=== PATIENT | female | born 1985 | race Caucasian/White ===

== ENCOUNTER 2017-06-26 12:03 | Emergency (ER) | payer MEDICAID ==
[2017-06-26 12:16] VITALS: RESP 16
--- NOTE | 2017-06-26 12:17 | EDPHY ---
HPI/HX/ROS/PE/MDM Narrative: CHIEF COMPLAINT: Abdominal pain, syncope HPI: This patient is a 32 year old female complaining of abdominal pain who presents following a syncopal episode this morning. She has had "strange stomach issues " for the past two weeks including bloating, fatigue, nausea, and increased appetite. These symptoms do not seem to be relieved by anything, and are constant. She denies diarrhea but has had loose stools and increased frequency of bowel movements. Increased urinary frequency as well. She has woken up each night feeling ill and notes increased bowel noises. Additionally, she has had a pruritic rash on her sides. Today, she went to a kickTelllering class and became lightheaded about 3 minutes into the class and then fainted two minutes later. She is generally very athletic and this is unusual for her. The patient was diagnosed with eosinophilic esophagitis by scope one year ago in May. She has had an abdominal ultrasound in the past but no CT studies. She initially followed up with an cafe site attendant, but has not pursued much further treatment. She thought symptoms may be related to her EoE and tried a liquid diet for three days without much relief. She denies history of abdominal surgeries. No dysuria. Her last menstrual period was 06/06/17, and was normal for her. No fever, chest pain, shortness of breath, or other associated sypmtoms. REVIEW OF SYSTEMS: Aside from elements discussed in the HPI, a comprehensive 10-point review of systems was reviewed and is negative. PMH: Eosinophilic esophagitis. Anemia. SOCIAL HISTORY: Works in event sales and marketing. PHYSICAL EXAM: General:Patient is alert, in no acute distress. ENT:Eyes are normal to inspection. ENT inspection normal. Neck: Normal inspection. Full range of motion. Respiratory:No respiratory distress. Breath sounds normal bilaterally. Cardiovascular: Regular rate and rhythm. Strong peripheral pulses. Normal cap refill. Abdomen: Mild epigastric tenderness. There are no peritoneal signs. There are normal bowel sounds. Back: Normal to inspection. No tenderness to palpation. Skin: Normal color. No rash. Warm and dry. Extremities: Normal appearance. Full range of motion. Neuro: Oriented x3. Normal motor function. Normal sensory function. (Kunal Issa) ED Course: 32 y/o female presents with two week history of abdominal discomfort. IV established. Mild epigastric tenderness on exam. Plan for EKG, labs including CBC, chemistries, UA, liver, lipase, BHCG. Plan to administer 1L IV NS. The 12 lead EKG was interpreted by myself. See hard copy and/or "tracemaster" electronic copy for interpretation. BHCG negative. Laboratory studies otherwise unremarkable. 13:30 Patient signed out to Dr. Martínez pending CTAP. I anticipate discharge home if study is negative. (Kunal Issa) 1330 care assumed by me from Dr. Issa pending ECG and CT scan of the abdomen and pelvis. 1400 CT scan interpreted by Dr. Stallings shows no acute intra-abdominal process. 1410 ECG time 2:07 p.m., sinus rhythm with a rate of 68, borderline right axis deviation, normal intervals, no acute ST or T-wave changes. Impression: Normal ECG. 1415 patient has a negative workup here. Negative CT. Normal ECG. Laboratory evaluations unremarkable. Will discharge per Dr. Issa plan for outpatient follow-up. (Ricco Martínez) - Data Points Imaging Results: Imaging Impressions Abdomen CT 06/26/17 13:08 Impression: 1. Normal appendix. 2. Gaseous bowel pattern; however, no evidence of obstruction or focal enteritis. 3. Trace free fluid in the pelvis is likely related to small ovarian follicles. Findings discussed with Emergency Department physician, Kunal Issa MD, on 06/26/2017, 14:00. Laboratory Results: Laboratory Results 06/26/17 12:26 06/26/17 12:26 06/26/17 06/26/17 06/26/17 14:00 12:26 12:26 WBC RBC Hgb Hct MCV MCH MCHC RDW Plt Count MPV Neut % (Auto) Lymph % (Auto) [place] % (Auto) Eos % (Auto) Baso % (Auto) Nucleat RBC Rel Count Absolute Neuts (auto) Absolute Lymphs (auto) Absolute Monos (auto) Absolute Eos (auto) Absolute Basos (auto) Absolute Nucleated RBC Immature Gran % Immature Gran # Sodium 140 mEq/L mEq/L (135-145) Potassium 4.4 mEq/L mEq/L (3.5-5.2) Chloride 99 mEq/L mEq/L (97-110) Carbon Dioxide 24 mEq/l mEq/l (22-31) Anion Gap 17 mEq/L H mEq/L (8-16) BUN 15 mg/dL mg/dL (7-23) Creatinine 1.0 mg/dL mg/dL (0.6-1.0) Estimated GFR > 60 Glucose 84 mg/dL mg/dL (70-100) Calcium 10.2 mg/dL mg/dL (8.5-10.4) Total Bilirubin 0.9 mg/dL mg/dL (0.1-1.4) Conjugated Bilirubin 0.2 mg/dL mg/dL (0.0-0.5) Unconjugated Bilirubin 0.7 mg/dL mg/dL (0.0-1.1) AST 17 IU/L IU/L (14-46) ALT 26 IU/L IU/L (9-52) Alkaline Phosphatase 29 IU/L L IU/L (38-126) Total Protein 8.7 g/dL H g/dL (6.3-8.2) Albumin 5.3 g/dL H g/dL (3.5-5.0) Lipase 69 IU/L IU/L (23-300) Beta HCG, Qual NEGATIVE Urine Color Pending Urine Appearance Pending Urine pH Pending Ur Specific [place] Pending Urine Protein Pending Urine Ketones Pending Urine Blood Pending Urine Nitrate Pending Urine Bilirubin Pending Urine Urobilinogen Pending Ur Leukocyte Esterase Pending Urine Glucose Pending 06/26/17 12:26 WBC 5.57 10^3/uL 10^3/uL (3.80-9.50) RBC 4.39 10^6/uL 10^6/uL (4.18-5.33) Hgb 14.0 g/dL g/dL (12.6-16.3) Hct 40.1 % % (38.0-47.0) MCV 91.3 fL fL (81.5-99.8) MCH 31.9 pg pg (27.9-34.1) MCHC 34.9 g/dL g/dL (32.4-36.7) RDW 12.9 % % (11.5-15.2) Plt Count 291 10^3/uL 10^3/uL (150-400) MPV 10.1 fL fL (8.7-11.7) Neut % (Auto) 47.0 % % (39.3-74.2) Lymph % (Auto) 39.5 % % (15.0-45.0) [place] % (Auto) 8.6 % % (4.5-13.0) Eos % (Auto) 3.6 % % (0.6-7.6) Baso % (Auto) 1.1 % % (0.3-1.7) Nucleat RBC Rel Count 0.0 % % (0.0-0.2) Absolute Neuts (auto) 2.62 10^3/uL 10^3/uL (1.70-6.50) Absolute Lymphs (auto) 2.20 10^3/uL 10^3/uL (1.00-3.00) Absolute Monos (auto) 0.48 10^3/uL 10^3/uL (0.30-0.80) Absolute Eos (auto) 0.20 10^3/uL 10^3/uL (0.03-0.40) Absolute Basos (auto) 0.06 10^3/uL 10^3/uL (0.02-0.10) Absolute Nucleated RBC 0.00 10^3/uL 10^3/uL (0-0.01) Immature Gran % 0.2 % % (0.0-1.1) Immature Gran # 0.01 10^3/uL 10^3/uL (0.00-0.10) Sodium Potassium Chloride Carbon Dioxide Anion Gap BUN Creatinine Estimated GFR Glucose Calcium Total Bilirubin Conjugated Bilirubin Unconjugated Bilirubin AST ALT Alkaline Phosphatase Total Protein Albumin Lipase Beta HCG, Qual Urine Color Urine Appearance Urine pH Ur Specific [place] Urine Protein Urine Ketones Urine Blood Urine Nitrate Urine Bilirubin Urine Urobilinogen Ur Leukocyte Esterase Urine Glucose Medications Given: Discontinued Medications Sodium Chloride (Ns) 1,000 mls @ 0 mls/hr IV EDNOW ONE; Wide Open PRN Reason: Protocol Stop: 06/26/17 12:27 Last Admin: 06/26/17 12:33 Dose: 1,000 mls General Time Seen by Provider: 06/26/17 12:09 Initial Vital Signs: Initial Vital Signs Temperature (C) 36.5 C 06/26/17 12:09 Heart Rate 92 06/26/17 12:09 Respiratory Rate 16 06/26/17 12:09 Blood Pressure 117/83 H 06/26/17 12:09 O2 Sat (%) 99 06/26/17 12:09 O2 Delivery Mode Room Air Allergies/Adverse Reactions: cephalexin Allergy (Verified 06/26/17 12:17) Penicillins Allergy (Verified 06/26/17 12:17) sulfamethoxazole [From Bactrim] Allergy (Verified 06/26/17 12:17) trimethoprim [From Bactrim] Allergy (Verified 06/26/17 12:17) Home Medications: Medication Instructions Recorded Ondansetron Odt [Zofran Odt 4 mg 4 mg PO Q4 PRN #10 tab 06/26/17 (*)] Departure - Departure Disposition: Home, Routine, Self-Care Clinical Impression: Abdominal pain Condition: Good Instructions: Acute Abdominal Pain (ED) Additional Instructions: Follow-up with your metal hanging helper within one week for further evaluation. Return to the ED for fever, severe abdominal pain, vomiting or other concerns. Referrals: NONE *PRIMARY CARE P,. [Primary Care Provider] - As per Instructions Ricco Sandoval MD [Medical Doctor] - As per Instructions Prescriptions: Ondansetron Odt [Zofran Odt 4 mg (*)] 4 mg PO Q4 PRN #10 tab PRN Reason: nausea Report Scribed for: Kunal Issa Report Scribed by: Rosibel Pacheco Date of Report: 06/26/17 Time of Report: 12:17 Physician Review and Approval Statement: Portions of this note were transcribed by an ED scribe. I personally performed the history, physical exam, and medical decision making; and confirm the accuracy of the information in the transcribed note.
[2017-06-26] MEDS ORDERED: NS 1,000 ML IV ONE (12:26)
[2017-06-26 12:44] LABS: PLATELET COUNT 291 10^3/uL (150-400)
[2017-06-26] MEDS ORDERED: IOPAMIDOL (ISOVUE-300) 100 ML BTL ONE (13:21)
--- NOTE | 2017-06-26 14:09 | CPEKG ---
Heart Rate: 68 RR Interval: 882 P-R Interval: 144 QRSD Interval: 92 QT Interval: 412 QTC Interval: 439 P [place]: 64 QRS [place]: 94 T Wave [place]: 27 EKG Severity - OTHERWISE NORMAL ECG - EKG Impression: SINUS RHYTHM EKG Impression: BORDERLINE RIGHT AXIS DEVIATION Electronically Signed By: Ricco Martínez 26-Jun-2017 20:50:49
[2017-06-26 14:29] VITALS: BP 103/60; PULSE 78; TEMP 98.2; O2SAT 98
== END 2017-06-26 14:28 | disposition home or self-care (01) ==
PROC: 3E0337Z Introduction of Electrolytic and Water Balance Substance into Peripheral Vein, Percutaneous Approach (ICD-10-PCS; principal; 2017-06-26)
DX: R10.13 Epigastric pain (principal); E86.9 Volume depletion, unspecified
CPT/HCPCS: Q9967

== ENCOUNTER 2017-11-16 13:49 | Emergency (ER) | payer MEDICAID ==
[2017-11-16] MEDS ORDERED: NS 1,000 ML IV ONE (14:14)
--- NOTE | 2017-11-16 14:17 | EDPHY ---
H & P Stated Complaint: lightheaded Time Seen by Provider: 11/16/17 14:07 HPI/ROS: CHIEF COMPLAINT: Lightheadedness HISTORY OF PRESENT ILLNESS: The patient is a 32-year-old female comes to the emergency department complaining of lightheadedness and feeling like she is going to faint. She states that this happens to her very commonly. She has been worked up by her primary as well as Neurology with no specific cause found. She states that when she exerts herself she begins to feel like her heart is beating slowly and then has some tingling in her left arm and feels lightheaded. She states that if she does not sit down that she is worried she will faint. Over the last few months she has also been complaining of some discomfort in her hamstring region associated with these symptoms. It is not always present except for when she is feeling lightheaded. She denies low back pain. She was diagnosed was sacroiliitis by her primary few weeks ago on x- ray. No fevers. No trauma. She does have a history of playing competitive soccer into her early 20s. REVIEW OF SYSTEMS: Constitutional: denies: chills, fever, recent illness, recent injury EENTM: denies: blurred vision, double vision, nose congestion Respiratory: denies: cough, shortness of breath Cardiac: See HPI denies: chest pain, Gastrointestinal/Abdominal: denies: abdominal pain, diarrhea, nausea, vomiting, blood streaked stools Genitourinary: denies: dysuria, frequency, hematuria, pain Musculoskeletal: See HPI Skin: denies: lesions, rash, jaundice, bruising Neurological: denies: headache, numbness, paresthesia, tingling, dizziness, weakness Hematologic/Lymphatic: denies: blood clots, easy bleeding, easy bruising Immunologic/allergic: denies: HIV/AIDS, transplant EXAM: GENERAL: Well-appearing, well-nourished and in no acute distress. HEAD: Atraumatic, normocephalic. EYES: Pupils equal round and reactive to light, extraocular movements intact, sclera anicteric, conjunctiva are normal. ENT: TMs normal, nares patent, oropharynx clear without exudates. Moist mucous membranes. NECK: Normal range of motion, supple without lymphadenopathy or JVD. LUNGS: Breath sounds clear to auscultation bilaterally and equal. No wheezes rales or rhonchi. HEART: Regular rate and rhythm without murmurs, rubs or gallops. ABDOMEN: Soft, nontender, normoactive bowel sounds. No guarding, no rebound. No masses appreciated. BACK: No CVA tenderness, no spinal tenderness, step-offs or deformities EXTREMITIES: Normal range of motion, no pitting or edema. No clubbing or cyanosis. NEUROLOGICAL: Cranial nerves II through XII grossly intact. Normal speech, normal gait. 5/5 strength, normal movement in all extremities, normal sensation PSYCH: Normal mood, normal affect. SKIN: Warm, dry, normal turgor, no visible rashes or lesions. Source: Patient - Medical/Surgical History Hx Asthma: No Hx Chronic Respiratory Disease: No Hx Diabetes: No Hx Cardiac Disease: No Hx Renal Disease: No Hx Cirrhosis: No Hx Alcoholism: No Hx HIV/AIDS: No Hx Splenectomy or Spleen Trauma: No Other PMH: IBS, Anemia, - Family History Significant Family History: No pertinent family hx - Social History Smoking Status: Never smoked Alcohol Use: Sober Drug Use: None Constitutional: Initial Vital Signs Temperature (C) 36.5 C 11/16/17 13:51 Heart Rate 71 11/16/17 13:51 Respiratory Rate 18 11/16/17 13:51 Blood Pressure 102/84 H 11/16/17 13:51 O2 Sat (%) 98 11/16/17 13:51 O2 Delivery Mode Room Air Allergies/Adverse Reactions: cephalexin Allergy (Verified 11/16/17 13:51) Penicillins Allergy (Verified 11/16/17 13:51) sulfamethoxazole [From Bactrim] Allergy (Verified 11/16/17 13:51) trimethoprim [From Bactrim] Allergy (Verified 11/16/17 13:51) Home Medications: Medication Instructions Recorded Ondansetron Odt [Zofran Odt 4 mg 4 mg PO Q4 PRN #10 tab 06/26/17 (*)] Medical Decision Making - Diagnostics EKG Interpretation: An EKG obtained and was read and documented in trace view. Please see trace view for full reading and report. Sinus rhythm, no acute ischemic changes Imaging Results: Imaging Impressions Lumbar Spine X-Ray 11/16/17 14:18 Impression: No acute findings in the lumbar spine. Imaging: Discussed imaging studies w/ call center director Radiologist ED Course/Re-evaluation: 4:15 p.m. the patient is feeling well after IV fluids. We discussed her lab work and imaging which is reassuring. I have not found any obvious source for her presyncope symptoms. We discussed following up with Cardiology for Holter monitoring. We discussed symptoms of POTS syndrome etc. We discussed indications for returning. Differential Diagnosis: Partial list of the Differential diagnosis considered include but were not limited to; anxiety, hypertension, dehydration, postural orthostatic tachycardia syndrome and although unlikely based on the history and physical exam, I also considered endocrine abnormality, . I discussed these differential diagnoses and the plan with the patient as well as the usual and expected course. The patient understands that the diagnosis is provisional and that in medicine we are not always correct and that further workup is often warranted. Usual and customary warnings were given. All of the patient's questions were answered. The patient was instructed to return to the emergency department should the symptoms at all worsen or return, otherwise to followup with the physician as we discussed. - Data Points Laboratory Results: Laboratory Results 11/16/17 14:58 11/16/17 14:58 11/16/17 11/16/17 11/16/17 14:58 14:58 14:58 WBC 6.69 10^3/uL 10^3/uL (3.80-9.50) RBC 4.09 10^6/uL L 10^6/uL (4.18-5.33) Hgb 12.9 g/dL g/dL (12.6-16.3) Hct 38.1 % % (38.0-47.0) MCV 93.2 fL fL (81.5-99.8) MCH 31.5 pg pg (27.9-34.1) MCHC 33.9 g/dL g/dL (32.4-36.7) RDW 13.0 % % (11.5-15.2) Plt Count 297 10^3/uL 10^3/uL (150-400) MPV 10.4 fL fL (8.7-11.7) Neut % (Auto) 51.5 % % (39.3-74.2) Lymph % (Auto) 34.8 % % (15.0-45.0) [place] % (Auto) 8.7 % % (4.5-13.0) Eos % (Auto) 3.9 % % (0.6-7.6) Baso % (Auto) 1.0 % % (0.3-1.7) Nucleat RBC Rel Count 0.0 % % (0.0-0.2) Absolute Neuts (auto) 3.44 10^3/uL 10^3/uL (1.70-6.50) Absolute Lymphs (auto) 2.33 10^3/uL 10^3/uL (1.00-3.00) Absolute Monos (auto) 0.58 10^3/uL 10^3/uL (0.30-0.80) Absolute Eos (auto) 0.26 10^3/uL 10^3/uL (0.03-0.40) Absolute Basos (auto) 0.07 10^3/uL 10^3/uL (0.02-0.10) Absolute Nucleated RBC 0.00 10^3/uL 10^3/uL (0-0.01) Immature Gran % 0.1 % % (0.0-1.1) Immature Gran # 0.01 10^3/uL 10^3/uL (0.00-0.10) Sodium 142 mEq/L mEq/L (135-145) Potassium 4.0 mEq/L mEq/L (3.3-5.0) Chloride 104 mEq/L mEq/L (97-110) Carbon Dioxide 25 mEq/l mEq/l (22-31) Anion Gap 13 mEq/L mEq/L (8-16) BUN 15 mg/dL mg/dL (7-23) Creatinine 0.8 mg/dL mg/dL (0.6-1.0) Estimated GFR > 60 Glucose 79 mg/dL mg/dL (70-100) Calcium 9.8 mg/dL mg/dL (8.5-10.4) Total Bilirubin 0.7 mg/dL mg/dL (0.1-1.4) Conjugated Bilirubin 0.2 mg/dL mg/dL (0.0-0.5) Unconjugated Bilirubin 0.5 mg/dL mg/dL (0.0-1.1) AST 18 IU/L IU/L (14-46) ALT 20 IU/L IU/L (9-52) Alkaline Phosphatase 39 IU/L IU/L (38-126) Total Protein 7.7 g/dL g/dL (6.3-8.2) Albumin 4.6 g/dL g/dL (3.5-5.0) TSH 1.410 uIU/mL uIU/mL (0.465-4.680) Beta HCG, Qual NEGATIVE Urine Color Urine Appearance Urine pH Ur Specific [place] Urine Protein Urine Ketones Urine Blood Urine Nitrate Urine Bilirubin Urine Urobilinogen Ur Leukocyte Esterase Urine RBC Urine WBC Ur Epithelial Cells Urine Mucus Urine Glucose Urine Opiates Screen Urine Barbiturates Ur Phencyclidine Scrn Ur Amphetamine Screen U Benzodiazepines Scrn Urine Cocaine Screen U Marijuana (THC) Screen 11/16/17 14:30 WBC RBC Hgb Hct MCV MCH MCHC RDW Plt Count MPV Neut % (Auto) Lymph % (Auto) [place] % (Auto) Eos % (Auto) Baso % (Auto) Nucleat RBC Rel Count Absolute Neuts (auto) Absolute Lymphs (auto) Absolute Monos (auto) Absolute Eos (auto) Absolute Basos (auto) Absolute Nucleated RBC Immature Gran % Immature Gran # Sodium Potassium Chloride Carbon Dioxide Anion Gap BUN Creatinine Estimated GFR Glucose Calcium Total Bilirubin Conjugated Bilirubin Unconjugated Bilirubin AST ALT Alkaline Phosphatase Total Protein Albumin TSH Beta HCG, Qual Urine Color COLORLESS Urine Appearance CLEAR Urine pH 8.0 H (5.0-7.5) Ur Specific [place] 1.003 (1.002-1.030) Urine Protein NEGATIVE (NEGATIVE) Urine Ketones NEGATIVE (NEGATIVE) Urine Blood NEGATIVE (NEGATIVE) Urine Nitrate NEGATIVE (NEGATIVE) Urine Bilirubin NEGATIVE (NEGATIVE) Urine Urobilinogen NEGATIVE EU EU (0.2-1.0) Ur Leukocyte Esterase NEGATIVE (NEGATIVE) Urine RBC 1-3 /hpf /hpf (0-3) Urine WBC 1-3 /hpf /hpf (0-3) Ur Epithelial Cells NONE SEEN /lpf /lpf (NONE-1+) Urine Mucus TRACE /lpf /lpf (NONE-1+) Urine Glucose NEGATIVE (NEGATIVE) Urine Opiates Screen NEGATIVE (NEGATIVE) Urine Barbiturates NEGATIVE (NEGATIVE) Ur Phencyclidine Scrn NEGATIVE (NEGATIVE) Ur Amphetamine Screen NEGATIVE (NEGATIVE) U Benzodiazepines Scrn NEGATIVE (NEGATIVE) Urine Cocaine Screen NEGATIVE (NEGATIVE) U Marijuana (THC) Screen NEGATIVE (NEGATIVE) Medications Given: Discontinued Medications Sodium Chloride (Ns) 1,000 mls @ 0 mls/hr IV EDNOW ONE; Wide Open PRN Reason: Protocol Stop: 11/16/17 14:15 Last Admin: 11/16/17 14:56 Dose: 1,000 mls Departure - Departure Disposition: Home, Routine, Self-Care Clinical Impression: Pre-syncope Condition: Fair Instructions: Near Syncope (ED) Referrals: Kunal Parks DO [Primary Care Provider] - 2-3 days without fail Jose Andrews MD [Medical Doctor] - 2-3 days without fail
--- NOTE | 2017-11-16 14:45 | CPEKG ---
Heart Rate: 56 RR Interval: 1071 P-R Interval: 160 QRSD Interval: 86 QT Interval: 452 QTC Interval: 437 P [place]: 57 QRS [place]: 83 T Wave [place]: 45 EKG Severity - NORMAL ECG - EKG Impression: SINUS RHYTHM Electronically Signed By: Carlo Blair 16-Nov-2017 14:53:24
[2017-11-16 15:27] LABS: PLATELET COUNT 297 10^3/uL (150-400)
[2017-11-16 16:18] VITALS: BP 101/62
== END 2017-11-16 16:18 | disposition home or self-care (01) ==
DX: R55 Syncope and collapse (principal); E86.9 Volume depletion, unspecified
CPT/HCPCS: 80305

== ENCOUNTER 2018-06-15 09:47 | Emergency (ER) | payer MEDICAID ==
[2018-06-15 10:26] LABS: PLATELET COUNT 247 10^3/uL (150-400)
[2018-06-15] MEDS ORDERED: NS 1,000 ML IV ONE (11:26)
[2018-06-15 12:46] VITALS: BP 108/69
--- NOTE | 2018-06-15 13:09 | EDPHY ---
H & P Stated Complaint: Near syncopal episodes yesterday and today. Time Seen by Provider: 06/15/18 09:58 HPI/ROS: CHIEF COMPLAINT: Almost fainted HISTORY OF PRESENT ILLNESS: This is a 33-year-old female with a long history of syncope and presyncope. She presents today after having an episode of "almost passing out" last night and again this morning. When this occurs she gets a sensation that her ears are plugged and then her vision starts to fade. She sometimes is aware of her heart beating. It has become her habit to lie down and put her legs up when she develops these symptoms. She also tries to drink more water when this occurs. She comes today because these recent episodes concerned her. She did not faint and has not suffered any trauma. She states that she sometimes has systolic blood pressures in the 80s. She has had fatigue and a feeling of being "run down" for quite some time. She feels that her immune system is suppressed and states that she has had 3 upper respiratory infections in as many months. She currently has a cold. She has undergone an evaluation by , cardiology. This evaluation included wearing a heart monitor, echocardiogram, and exercise stress test. She has been referred to a general ophthalmologist and an handle maker and has been working with both of these physicians to see if an etiology of her syncope/ presyncope can be discovered. REVIEW OF SYSTEMS: A ten system review of systems was performed and is negative with the exception of the items mentioned in the HPI. Past medical history: 1. Syncope 2. IBS Past surgical history: Noncontributory Family history: Includes thyroid problems, an aunt with ovarian cancer, dementia, many family members with syncope, an uncle with [place]dalek hernia, 2 cousins with seizure disorder. Social history: She is currently unemployed due to health problems. She lives with her boyfriend in [place]. She does not use tobacco products. General Appearance: Alert. Vital signs reviewed. Initial blood pressure 108/ 82, heart rate 80, oxygen saturation 99%. Orthostatic vital signs reviewed. Eyes: Pupils equal and round, no conjunctival injection, no discharge. Anicteric. ENT, Mouth: Mucous membranes are moist, no oropharyngeal erythema or edema. Neck: No lymphadenopathy, supple. Respiratory: Lungs are clear to auscultation; no wheezes, rales, or rhonchi. Cardiovascular: Regular rate and rhythm; no murmur, rub, or gallop. Gastrointestinal: Abdomen is soft and nontender, no masses or organomegaly, bowel sounds normal. Skin: Warm and dry, no rashes on exposed skin, normal color. Back: Nontender to palpation over the thoracolumbar spine. No CVAT. Extremities: No lower extremity edema, no calf tenderness or swelling. Neurological: Alert and oriented. Moving all four extremities easily and equally. Facial expressions symmetric. LY. EOMI. Psychiatric: Normal affect. - Personal History LMP (Females 10-55): 22-28 Days Ago Current Tetanus Diphtheria and Acellular Pertussis (TDAP): Yes - Medical/Surgical History Hx Asthma: No Hx Chronic Respiratory Disease: No Hx Diabetes: No Hx Cardiac Disease: No Hx Renal Disease: No Hx Cirrhosis: No Hx Alcoholism: No Hx HIV/AIDS: No Hx Splenectomy or Spleen Trauma: No Other PMH: IBS, Anemia. Hypotension. Esophagitis. - Social History Smoking Status: Never smoked Constitutional: Initial Vital Signs Temperature (C) 36.4 C 06/15/18 09:49 Heart Rate 80 06/15/18 09:49 Respiratory Rate 16 06/15/18 09:49 Blood Pressure 108/82 H 06/15/18 09:49 O2 Sat (%) 99 06/15/18 09:49 O2 Delivery Mode Room Air Allergies/Adverse Reactions: cephalexin Allergy (Verified 11/16/17 13:51) Penicillins Allergy (Verified 11/16/17 13:51) sulfamethoxazole [From Bactrim] Allergy (Verified 11/16/17 13:51) trimethoprim [From Bactrim] Allergy (Verified 11/16/17 13:51) Home Medications: Medication Instructions Recorded NK [No Known Home Meds] 06/15/18 Medical Decision Making - Diagnostics EKG Interpretation: 12 lead EKG is interpreted in [place] by emergency department physician. No acute ischemic changes. Sinus rhythm with a rate of 62. ED Course/Re-evaluation: 33-year-old female with presyncope x2 in the last 24 hr. She has long history of syncope and presyncope. Emergency department evaluation included an EKG which is normal. She had a CBC performed in is very mildly anemic at 11.7 and 37.4. I do not think that this anemia accounts for her presyncope. She is not . I am not recommending any additional workup for syncope in the emergency department. She has undergone and continues to undergo an extensive outpatient workup of this problem. I reviewed her orthostatic vital signs. Her blood pressure remained stable but there was an increase in her heart rate as she went from supine to standing. Prior to discharge I tested her heart rate when supine and when standing and remained stable with a standing heart rate of 78. Differential Diagnosis: Syncope including but not limited to vasovagal syncope, arrhythmia, dehydration , and blood loss. - Data Points Laboratory Results: Laboratory Results 06/15/18 10:17 Medications Given: Discontinued Medications Sodium Chloride (Ns) 1,000 mls @ 0 mls/hr IV EDNOW ONE; Wide Open PRN Reason: Protocol Stop: 06/15/18 11:27 Last Admin: 06/15/18 11:53 Dose: 1,000 mls Departure - Departure Disposition: Home, Routine, Self-Care Clinical Impression: Pre-syncope Condition: Good Instructions: Near Syncope (ED) Additional Instructions: Drink lots of fluids. Continue your out patient evaluation. Referrals: Kunal Parks DO [Primary Care Provider] - As per Instructions
--- NOTE | 2018-06-15 16:01 | CPEKG ---
Test Reason : OPEN Blood Pressure : / mmHG Vent. Rate : 062 BPM Atrial Rate : 061 BPM P-R Int : 147 ms QRS Dur : 086 ms QT Int : 421 ms P-R-T Axes : 070 086 056 degrees QTc Int : 428 ms Sinus rhythm Confirmed by April Gilmore ([id number] on 06/15/2018 4:01:24 PM Referred By: APRIL GILMORE Confirmed By:April Gilmore
== END 2018-06-15 13:21 | disposition home or self-care (01) ==
DX: R55 Syncope and collapse (principal); I95.9 Hypotension, unspecified

== ENCOUNTER → 2018-07-18 | Outpatient (CLI) | payer MEDICAID | LOC: FIMAGING 10:25 | PROVIDERS: ATTEND Physician Assistant Medical | DX: I65.29 Occlusion and stenosis of unspecified carotid artery (principal); H53.9 Unspecified visual disturbance; R20.0 Anesthesia of skin; R42 Dizziness and giddiness; R55 Syncope and collapse ==

== ENCOUNTER → 2018-07-19 | Outpatient (CLI) | payer MEDICAID ==
--- NOTE | 2018-07-19 21:29 | CPEEG ---
[f rep st] ELECTROENCEPHALOGRAM DATE OF STUDY: 07/19/2018 INTERPRETATION: Normal EEG during wakefulness and partial sleep. There were no potentially epilepto genic abnormalities present in the recording. REPORT: This EEG contains 10 Hz alpha activity of the posterior head regions. The background activi ty was normal and symmetric. There was no abnormal activation at rest, during photic stimulation, or hyperventilation. The patient intermittently became drowsy and fell into light sleep. There was no abnormal activation during drowsiness, light sleep, or during times of arousal. /[id number]/MODL
== END ==
LOC: FCPNEURO 13:51
PROVIDERS: ATTEND Psychiatry & Neurology Neurology
DX: R55 Syncope and collapse (principal); R20.0 Anesthesia of skin; H53.9 Unspecified visual disturbance; R42 Dizziness and giddiness

== ENCOUNTER → 2018-07-21 | Outpatient (CLI) | payer MEDICAID ==
[~2018-07-21] MED LIST: GADOBUTROL 10 ML VIAL IVP ONE
== END ==
LOC: FIMAGING 11:23
PROVIDERS: ATTEND Physician Assistant Medical
DX: R55 Syncope and collapse (principal); R42 Dizziness and giddiness; R20.0 Anesthesia of skin; H53.9 Unspecified visual disturbance
CPT/HCPCS: A9585